=== PATIENT | male | born 1985 | race Caucasian/White ===

== ENCOUNTER → 2016-09-22 | Outpatient (CLI) | payer BC, OTHER ==
[~2016-09-22] MED LIST: PANT40TA PO
[2016-09-22 13:16] LABS: DAYS OF ABSTINENCE 2; METHOD OF COLLECTION MASTURBATION; SEMEN COLOR GRAY OR GRAY-WHITE (GRY/GRYWHTE); SEMEN TIME OF COLLECTION 709; TYPE OF SPECIMEN CONTAINER STERILE CUP
[2016-09-22 13:19] LABS: SEMEN VOLUME 2.8 ML (>1.5)
[2016-09-22 13:20] LABS: SPERM VIABILITY STAIN NOT INDICATED % (>58%)
--- NOTE | 2016-09-23 14:16 | CODING QUERY NO DIAGNOSIS ---
TREATMENT RENDERED WITHOUT A DIAGNOSIS Dr. Orellana, To promote full compliance with coding requirements relating to patient care, physician participation is requested in all cases of director of assisted living uncertainty. Please assist us with providing a diagnosis/symptom for the test(s) below: A diagnosis/symptom was not documented on your Order. A valid diagnosis/symptom is required to bill all insurances. Please remember that we are unable to code a diagnosis of rule out, probable, possible, questionable, or suspected. Tests that require a diagnosis: * SEMEN ANALYSIS DIAGNOSIS: DATE OF SERVICE: 09/22/16 Provider Signature: Date: Thank you Sonny Villa [facility] Information Management Once completed, please kindly fax back to [phone] For questions please call [phone]
== END | disposition home or self-care (01) ==
LOC: C.LAB 08:20
PROVIDERS: ATTEND Specialist
DX: N46.9 Male infertility, unspecified (principal)